=== PATIENT | female | born 1950 | race Caucasian/White ===

== ENCOUNTER → 2019-09-10 08:11 | Outpatient (CLI) | payer MEDICARE, BC, SELFPAY ==
[2019-09-04 13:53] VITALS: BMI 25.4
[2019-09-10 12:36] LABS: Erythrocyte Sedimentation Rate 6 mm/hr (0-30)
[2019-09-10 12:39] LABS: ALB/GLOB Ratio 1.1 RATIO (0.9-2.4); AST(SGOT) 20 U/L (15-37); Alanine Aminotransfer ALT/SGPT 20 U/L (13-56); Albumin, Serum 4.1 g/dL (3.2-5.0); Alkaline Phosphatase 56 U/L (45-117); Anion Gap 6 (5-15); BUN 18 mg/dL (7-18); Calcium,Total 8.9 mg/dL (8.5-10.1); Chloride 104 mmol/L (98-107); Cholesterol 247 mg/dL (200); Creatinine, Serum 0.95 mg/dL (0.55-1.02); EST Glomerular Filtration Rate 63 mL/min (>60); Est Glom Filt Rate - Afr Amer 76 mL/min (>60); Globulin 3.6 g/dL (2.2-4.2); Glucose 86 mg/dL (74-106); High Density Lipoprotein 62 mg/dL; Protein, Total 7.7 g/dL (6.4-8.2); Sodium Level 139 mmol/L (136-145); Triglycerides 75 mg/dL; Very Low Density Lipoprotein 15 mg/dL (5-40)
[2019-09-10 12:51] LABS: Absolute Neutrophil Count 3.6 X10^3/uL (2.0-7.7); Basophil# 0.04 X10^3/uL; Basophil% 0.6 % (0-1); Eosinophil# 0.21 X10^3/uL; Eosinophils% 3.3 % (0-5); Hematocrit 37.8 % (37-47); Hemoglobin 12.1 g/dL (12.0-15.0); Lymphocyte % 28.7 % (19-41); Mean Corpuscular Hgb 28.7 pg (27.0-32.0); Mean Corpuscular Volume 89.8 fL (81-99); Monocyte# 0.64 X10^3/uL; Monocyte% 10.2 % (0-10); NRBC Flagged by Analyzer 0 % (0-5); Neutrophil # 3.57 X10^3/uL (2.7-7.7); Platelet Count 259 K/mm3 (150-450); RBC Distribution Width CV 12.6 % (11.6-14.6); RBC Distribution Width SD 41.7 fl (35.1-43.9); Red Blood Count 4.21 M/mm3 (4.2-5.4); White Blood Count 6.3 K/mm3 (4.4-11.0)
== END ==
PROVIDERS: Family Provider Family Medicine; PCP Internal Medicine; Visit Provider Internal Medicine
DX: E78.5 Hyperlipidemia, unspecified (principal); L97.929 Non-pressure chronic ulcer of unspecified part of left lower leg with unspecified severity
CPT/HCPCS: 36415; 80053; 80061; 85025; 85652

== ENCOUNTER 2019-09-12 08:21 | Outpatient (RCR) | payer MEDICARE, BC, SELFPAY ==
[2019-09-04 13:53] VITALS: BMI 25.4
[2019-09-12 08:54] VITALS: BP 164/95; PULSE 94; RESP 18; TEMP 536.6; TEMP 997.8; BMI 25.0
--- NOTE | 2019-09-12 16:08 | HP.PCM_ITS ---
(1) Localized swelling of left lower leg Status: Chronic Current Visit: Yes Code(s): R22.42 - Localized swelling, mass and lump, left lower limb (2) Leg ulcer, left Status: Chronic Current Visit: Yes Code(s): L97.929 - Non-pressure chronic ulcer of unspecified part of left lower leg with unspecified severity History of Present Illness Date of Service: 09/12/19 Chief Complaint: Nonhealing left leg ulcer. History of Wound: Ms. Can is a 65-year-old who was referred to the wound center by me due to chronic nonhealing left leg ulcer. States it started several months ago. Started out as a swelling which subsequently ulcerated. Had tried local wound care with no significant improvement. She was seen in my office earlier which time she had significant scabbing. Feels well otherwise. Denies chills, fever or weight changes. Past Medical History Past Medical History: Chronic Problems (Last Updated 09/04/19 @ 13:45 by Karen Blakely) Localized swelling of left lower leg (Chronic) Hyperlipidemia (Chronic) Leg ulcer, left (Chronic) Allergies/Adverse Reactions: Allergies No Known Allergies Allergy (Unverified 09/04/19 13:47) Home Medications: Ambulatory Orders Medication Instructions Recorded NK 09/04/19 Smoking Status: Never smoker Review of Systems Constitutional: Denies: Anorexia, Chills, Fever Eyes: Denies: Blurred vision, Pain, Redness HEENT: Denies: Difficulty Swallowing Cardiovascular: Denies: Chest Pain, Chest Pressure Respiratory: Denies: Cough, Wheezing Gastrointestinal: Denies: Abdominal Pain, Hematemesis, Vomiting Skin: Denies: Jaundice - Physical Exam Vital Signs Temp Pulse Resp BP 997.8 F H 94 18 164/95 H 09/12/19 08:54 09/12/19 08:54 09/12/19 08:54 09/12/19 08:54 General: Alert, Oriented x3, Cooperative, No apparent distress HEENT: Atraumatic, Normocephalic Oral: Moist Mucosa Neck: Supple Lungs: Normal air movement Cardiovascular: Regular rate, Regular Rhythm, Normal S1, Normal S2 Abdomen: Soft, Non Tender Extremities: No cyanosis Skin: Ulcer/ Wound Wound Measurements and Assessment WC - Nurse 1 - General Ulcer Measurement Start: 09/12/19 08:54 Freq: Status: Active Protocol: Activity Type Activity Date Activity User E-Sign Co-Sign Detail Recorded Client Recorded Date Recorded By Document 09/12/19 08:54 DL [id number] 09/12/19 09:11 DL 09/12/19 08:54 Wound Center Nurse 1 [Ulcer Assessment] #1 L Doty -Current Size (cm) - Length 0.5 -Current Size (cm) - Width 0.6 -Current Size (cm) - Depth 0.1 -Total Square Cm 0.30 -Photo Taken Yes -Exudate Amt Small -Exudate Type Serosanguineous -Wound Margin Distinct, Outline Attached -Granulation Amt Small (1-33%) -Granulation Quality Red -Necrosis Amt Small (1-33%) -Necrotic Tissue Type Adherent Slough -Structure Exposed N/A -Texture (Deidre-wound Skin Appearance) No Abnormality -Moisture (Deidre-wound Skin Appearance No Abnormality ) -Color (Deidre-wound Skin Appearance) No Abnormality, Rubor -Temperature (Deidre-wound Skin No Abnormality Appearance) (Pt Warm) -Tenderness on Palpation (Deidre-wound No Skin Appearance) -Ulcer Cleansing Rinsed/ Irrigated with Saline -Foul Odor after Cleansing No -Anesthetic Used 4% Lidocaine Solution [Edema Assessment] -Right Calf (cm) 33 -Right Ankle (cm) 21 -Left Calf (cm) 33 -Left Ankle (cm) 22 WC - Nurse 2 - General Ulcer CM Notes Start: 09/12/19 08:54 Freq: Status: Active Protocol: Activity Type Activity Date Activity User E-Sign Co-Sign Detail Recorded Client Recorded Date Recorded By Document 09/12/19 09:23 MW [id number] 09/12/19 09:28 MW 09/12/19 09:23 Wound Center Nurse 2 [Procedure/Treatment] #1 L Doty -Time 09:23 -Correct Patient Yes -Correct Side, Site, Position Yes -Correct Procedure Yes -Procedure Performed Yes -Type of Procedure Debridement -Clinical Debridement Subcutaneous -Post Debridement Size (cm) - Length 0.7 -Post Debridement Size (cm) - Width 1.5 -Post Debridement Size (cm) - Depth 0.1 -Total Square Cm 1.05 -Wound/Ulcer Outcome Not Healed -Ulcer Cleansing Rinsed/ Irrigated with Saline -Foul Odor after Cleansing No -Bioengineered Tissue No -Bleeding Controlled with Pressure -Offloading No -Treatment Response Procedure Tolerated Well [See Physician Procedure note for Specifics] Pain Scale: 0-10 Numeric [Pain] -Is Patient Pain Free? Yes Musculoskeletal: No Muscle Wasting Neurological: Cranial nerves II-XII grossly intact Psych/Mental Status: Normal Affect Debridement Note Post-Debridement Measurements/Treatment WC - Nurse 2 - General Ulcer CM Notes Start: 09/12/19 08:54 Freq: Status: Active Protocol: Activity Type Activity Date Activity User E-Sign Co-Sign Detail Recorded Client Recorded Date Recorded By Document 09/12/19 09:23 MW [id number] 09/12/19 09:28 MW 09/12/19 09:23 Wound Center Nurse 2 #1 L Doty -Time 09:23 -Correct Patient Yes -Correct Side, Site, Position Yes -Correct Procedure Yes -Procedure Performed Yes -Type of Procedure Debridement -Clinical Debridement Subcutaneous -Post Debridement Size (cm) - Length 0.7 -Post Debridement Size (cm) - Width 1.5 -Post Debridement Size (cm) - Depth 0.1 -Total Square Cm 1.05 -Wound/Ulcer Outcome Not Healed -Ulcer Cleansing Rinsed/ Irrigated with Saline -Foul Odor after Cleansing No -Bioengineered Tissue No -Bleeding Controlled with Pressure -Offloading No -Treatment Response Procedure Tolerated Well Pain Scale: 0-10 Numeric Is Patient Pain Free? Yes Wound debrided: Left leg ulcer Type of Debridement: Excisional debridement Anesthesia Used: 4% Lidocaine Solution Depth: Down to and including healthy tissue, in the subcutaneous layer Percentage of wound debrided: 100 Instrument Used: 3mm curette Tissue Removed: Slough and devitalized tissue Severity: Fat Layer Exposed Amount of bleeding with debridement: Mild Bleeding Controlled with: Pressure Patient tolerated procedure well Assessment/Plan Active Problems (Last Updated 09/04/19 @ 13:45 by Karen Blakely) Localized swelling of left lower leg (Chronic) Leg ulcer, left (Chronic) Assessment: Nonhealing left leg ulcer. ??? Complicated/complex cyst. Plan: Debridement done as documented above. Procedure was well tolerated. ? Sebaceous discharge noted on debridement. Refer to general surgery. For now, Aquacel daily with Adaptic over top. Keep area covered and protected. Follow- up at the office in a month. Her questions were answered and she was advised to call with any concerns. Discharge from the wound clinic. This note was generated with Dragon dictation software. It may contain incorrect words, spelling, and punctuation that were not noted in checking the note before signing. Code Visit 111xxx-113xx: [id number] Gem subq tissue 20 sq cm/<
== END 2019-10-08 23:59 ==
LOC: WC 08:21
PROVIDERS: Family Provider Internal Medicine; PCP Internal Medicine; Visit Provider Internal Medicine
DX: L97.822 Non-pressure chronic ulcer of other part of left lower leg with fat layer exposed (principal); R60.0 Localized edema; E78.5 Hyperlipidemia, unspecified; M79.89 Other specified soft tissue disorders
CPT/HCPCS: 11042; 99213; G0463

== ENCOUNTER → 2019-11-06 11:16 | Outpatient (CLI) | payer MEDICARE, BC, SELFPAY ==
--- NOTE | 2019-11-06 07:15 | LES_PTH ---
PATIENT: ARIEL CASTRO LOC: [facility] U#:[id number] AGE/SX: 75/F ROOM: RE11/06/[address]: Dr. Luis Manuel Gallegos MD : 1950 BED: DIS: SPEC #: [id number] RECD: 11/06/19 10:55 STATUS: CARL KENDY #: [id number] NICKY: 11/06/19 07:[address]: Luis Manuel Gallegos DEPT: SURGICAL PATHOLOGY RECD BY: Hector Javed Tissues: Skin of leg, NOS Procedures: Surgery Specimen Level IV HEADER OPERATION: Punch biopsy left lee lesion PRE-OP DIAGNOSIS: Left lee lesion TISSUE SUBMITTED: Left lee lesion biopsy MICROSCOPIC DIAGNOSIS Left lee lesion, punch biopsy: Basal cell carcinoma with focal ulceration and associated acute inflammation. SJ:juno 11/07/19 MICROSCOPIC DESCRIPTION Slides are reviewed. GROSS DESCRIPTION Received in fixative is one container labeled with the patient's name and designated left lee lesion. The specimen consists of a punch biopsy of mckee-white skin measuring 0.4 cm in diameter and 0.6 cm in length. The entire specimen is submitted in one cassette. / SJ:rg 11/06/19 TC:0 CPT: 21158
[2019-11-06 09:10] VITALS: BMI 25.0
== END ==
PROVIDERS: Referring Provider Surgery; Visit Provider Surgery
DX: L98.9 Disorder of the skin and subcutaneous tissue, unspecified (principal)
CPT/HCPCS: 88305

== ENCOUNTER → 2020-08-04 15:45 | Outpatient (CLI) | payer MEDICARE, BC, SELFPAY ==
[2020-08-04 15:01] VITALS: BMI 25.7
[2020-08-04 17:20] LABS: Absolute Lymphocyte Count 1.83 X10^3/uL (0.83-4.51); Absolute Neutrophil Count 4.6 X10^3/uL (2.0-7.7); Basophil# 0.05 X10^3/uL; Basophil% 0.7 % (0-1); Eosinophil# 0.19 X10^3/uL; Eosinophils% 2.5 % (0-5); Hematocrit 36.8 % (37-47); Hemoglobin 11.6 g/dL (12.0-15.0); Lymphocyte # 1.83 X10^3/ul (4.0); Lymphocyte % 24.5 % (19-41); Mean Corp Hgb Conc 31.5 g/dL (32-36); Mean Corpuscular Hgb 28.6 pg (27.0-32.0); Mean Corpuscular Volume 90.6 fL (81-99); Mean Platelet Vol. 10.3 fl (6.2-12.0); Monocyte# 0.76 X10^3/uL; Monocyte% 10.2 % (0-10); NRBC Flagged by Analyzer 0 % (0-5); Neutrophil # 4.63 X10^3/uL (2.7-7.7); Platelet Count 287 K/mm3 (150-450); RBC Distribution Width CV 12.4 % (11.6-14.6); RBC Distribution Width SD 41.4 fl (35.1-43.9); Red Blood Count 4.06 M/mm3 (4.2-5.4); White Blood Count 7.5 K/mm3 (4.4-11.0)
[2020-08-04 17:28] LABS: AST(SGOT) 16 U/L (15-37); Alanine Aminotransfer ALT/SGPT 20 U/L (13-56); Albumin, Serum 3.9 g/dL (3.2-5.0); Alkaline Phosphatase 74 U/L (45-117); Anion Gap 4 (5-15); BUN 23 mg/dL (7-18); BUN/Creat Ratio 23.4 RATIO (10-20); Calcium,Total 9.7 mg/dL (8.5-10.1); Chloride 107 mmol/L (98-107); Cholesterol 236 mg/dL (200); Creatinine, Serum 0.98 mg/dL (0.55-1.02); EST Glomerular Filtration Rate 60 mL/min (>60); Est Glom Filt Rate - Afr Amer 72 mL/min (>60); Globulin 3.9 g/dL (2.2-4.2); Glucose 100 mg/dL (74-106); High Density Lipoprotein 60 mg/dL; Potassium 4.6 mmol/L (3.5-5.1); Protein, Total 7.8 g/dL (6.4-8.2); Sodium Level 141 mmol/L (136-145); Triglycerides 118 mg/dL; Very Low Density Lipoprotein 24 mg/dL (5-40)
== END ==
PROVIDERS: PCP Internal Medicine; Referring Provider Internal Medicine; Visit Provider Internal Medicine
DX: E78.5 Hyperlipidemia, unspecified (principal)
CPT/HCPCS: 36415; 80053; 80061; 85025